=== PATIENT | female | born 1995 | race Caucasian/White ===

== ENCOUNTER 2017-09-11 22:38 | Emergency (ER) | payer OTHER ==
[~2017-09-11] VITALS: Ht 157.5 cm; Wt 46.3 kg
[2017-09-12] MEDS ORDERED: ZOFRAN4 MG PO (04:53)
[2017-09-12] MEDS ORDERED: ZANTAC300 MG PO (04:53)
== END 2017-09-12 05:25 | disposition home or self-care (01) ==
LOC: ER 22:38
DX: K52.9 Noninfective gastroenteritis and colitis, unspecified (principal)